=== PATIENT | male | born 1980 | race Caucasian/White ===

== ENCOUNTER 2024-05-13 16:34 | Outpatient (REF) | payer OTHER, SELFPAY ==
[2024-05-13 16:50] LABS: MANUAL DIFF FLAG NO
[2024-05-13 17:30] LABS: Basophils Absolute Auto 0.1 X10*3/uL (0.0-0.2); Basophils Percent Auto 0.5 % (0-2); Eosinophils Absolute Auto 0.1 X10*3/uL (0.0-0.4); Eosinophils Percent Auto 1.1 % (0-4); Hematocrit 46.4 % (42.0-52.0); Hemoglobin 15.9 g/dl (14.0-18.0); Imm Gran Abs Auto 0.04 X10*3/uL (0.00-0.03); Imm Gran Pct Auto 0.4 % (0.0-0.4); Lymphocytes Absolute Auto 3.6 X10*3/uL (1.2-4.9); Lymphocytes Percent Auto 31.4 % (20-40); Mean Corpuscular HGB Conc 34.3 g/dl (31.0-36.0); Mean Corpuscular Hemoglobin 29.7 pg (27.0-33.0); Mean Corpuscular Volume 86.7 fL (80.0-98.0); Mean Platelet Volume 12.4 fL (9.4-12.4); Monocytes Absolute Auto 0.7 X10*3/uL (0.1-1.2); Monocytes Percent Auto 5.7 % (2-11); Neutrophils Absolute Auto 6.9 x10*3/uL (2.0-8.3); Neutrophils Percent Auto 60.9 % (45-73); Platelet Count 199 X10*3/uL (160-400); Red Blood Count 5.35 X10*6/uL (4.60-5.80); Red Cell Distribution Width 12.5 % (11.0-16.0); White Blood Count 11.4 X10*3/uL (4.8-10.8)
[2024-05-13 17:40] LABS: Creatinine Urine 23.35 mg/dL; Microalbumin Urine < 5.0 mg/L
[2024-05-13 17:46] LABS: Alanine Aminotransferase 23 U/L (0-40); Albumin Level 4.4 g/dL (3.5-5.0); Alkaline Phosphatase 76 U/L (39-117); Anion Gap 12 (12-20); Aspartate Amino Transferase 16 U/L (5-37); Bilirubin Total 0.4 mg/dL (0.0-1.0); Blood Urea Nitrogen 10 mg/dL (9-16); Calcium 10.1 mg/dL (8.4-10.2); Carbon Dioxide 31 mmol/L (22-29); Chloride 100 mmol/L (96-108); Cholesterol 178 mg/dL (<200); Estimated Glomerular Filt Rate > 60; Glucose Random 193 mg/dL (60-115); HDL Cholesterol 50 mg/dL (>40); LDL Cholesterol Calculated 97 mg/dL (<100); Potassium 4.3 mmol/L (3.3-5.1); Sodium 139 mmol/L (135-145); Total Protein 7.3 g/dL (6.5-8.0); Triglycerides 157 mg/dL (<150)
[2024-05-13 17:52] LABS: Prostate Specific Antigen 0.43 ng/mL (<0.05-4.0)
[2024-05-13 17:53] LABS: TSH reflex Free T4 0.93 uIU/mL (0.32-4.0)
== END 2024-05-13 16:35 | disposition home or self-care (01) ==
LOC: HO.LAB 16:34
PROVIDERS: PCP Internal Medicine; Visit Provider Internal Medicine
DX: E11.65 Type 2 diabetes mellitus with hyperglycemia (principal); E78.00 Pure hypercholesterolemia, unspecified; F43.12 Post-traumatic stress disorder, chronic; F90.0 Attention-deficit hyperactivity disorder, predominantly inattentive type; I10 Essential (primary) hypertension
CPT/HCPCS: 36415; 80053; 80061; 82570; 84153; 84443; 85025

== ENCOUNTER 2024-07-24 07:55 | Outpatient (REF) | payer OTHER, SELFPAY ==
--- NOTE | 2024-07-24 | ECG_ITS ---
Test Reason : qtc prolongastion r/o Blood Pressure : / mmHG Vent. Rate : 084 BPM Atrial Rate : 084 BPM P-R Int : 162 ms QRS Dur : 126 ms QT Int : 406 ms P-R-T Axes : 020 -29 033 degrees QTc Int : 479 ms Normal sinus rhythm Left ventricular hypertrophy with QRS widening ( R in aVL , [place] product ) Abnormal ECG No previous ECGs available Referred By: Nishi Kebede Electronically Signed By:ANDRES VARGHESE
[2024-07-24 08:20] LABS: MANUAL DIFF FLAG NO
[2024-07-24 09:02] LABS: Basophils Absolute Auto 0.1 X10*3/uL (0.0-0.2); Basophils Percent Auto 0.6 % (0-2); Eosinophils Absolute Auto 0.1 X10*3/uL (0.0-0.4); Eosinophils Percent Auto 1.1 % (0-4); Hematocrit 46.8 % (42.0-52.0); Hemoglobin 15.3 g/dl (14.0-18.0); Imm Gran Abs Auto 0.02 X10*3/uL (0.00-0.03); Imm Gran Pct Auto 0.2 % (0.0-0.4); Lymphocytes Absolute Auto 2.7 X10*3/uL (1.2-4.9); Lymphocytes Percent Auto 29.6 % (20-40); Mean Corpuscular HGB Conc 32.7 g/dl (31.0-36.0); Mean Corpuscular Hemoglobin 29.4 pg (27.0-33.0); Mean Corpuscular Volume 89.8 fL (80.0-98.0); Mean Platelet Volume 12.2 fL (9.4-12.4); Monocytes Absolute Auto 0.5 X10*3/uL (0.1-1.2); Monocytes Percent Auto 5.4 % (2-11); Neutrophils Absolute Auto 5.7 x10*3/uL (2.0-8.3); Neutrophils Percent Auto 63.1 % (45-73); Platelet Count 188 X10*3/uL (160-400); Red Blood Count 5.21 X10*6/uL (4.60-5.80); Red Cell Distribution Width 13.4 % (11.0-16.0)
[2024-07-24 09:35] LABS: Estimated Average Glucose 189 mg/dL; Hemoglobin A1C 263.0496 umol/L; Hemoglobin A1c % 8.2 % (<6.0); Total Hemoglobin (HGBA1C) 3946.2368 umol/L
[2024-07-24 10:03] LABS: Erythrocyte Sedimentation Rate 2 MM/HR (0-15)
[2024-07-24 10:06] LABS: Appearance Urine Cloudy; Color Urine Yellow; Glucose Urine UA Negative (Negative); Leukocyte Esterase Urine Negative (Negative); Nitrite Urine Negative (Negative); Specific Gravity - Urine 1.015 (1.005-1.025); Urine Blood Negative (Negative); Urine Ketones Negative (Negative); Urine Protein Negative (Neg-Trace)
[2024-07-24 10:28] LABS: Syphilis Screen Nonreactive (Nonreactive)
[2024-07-24 10:29] LABS: Alanine Aminotransferase 24 U/L (0-40); Albumin Level 4.3 g/dL (3.5-5.0); Alkaline Phosphatase 71 U/L (39-117); Anion Gap 12 (12-20); Aspartate Amino Transferase 22 U/L (5-37); Bilirubin Total 0.7 mg/dL (0.0-1.0); Blood Urea Nitrogen 12 mg/dL (9-16); C Reactive Protein < 0.04 mg/dL (< or = 0.50); Calcium 9.4 mg/dL (8.4-10.2); Carbon Dioxide 28 mmol/L (22-29); Chloride 106 mmol/L (96-108); Cholesterol 125 mg/dL (<200); Estimated Glomerular Filt Rate > 60; Glucose Fasting 111 mg/dL (60-99); HDL Cholesterol 48 mg/dL (>40); Iron 91 mcg/dL (45-160); LDL Cholesterol Calculated 66 mg/dL (<100); Percent Iron Saturation 27 % (15-50); Phosphorus 3.8 mg/dL (2.7-4.5); Sodium 142 mmol/L (135-145); Total Iron Binding Capacity 336 mcg/dL (228-428); Total Protein 7.1 g/dL (6.5-8.0); Triglycerides 58 mg/dL (<150); Unsaturated Iron Binding 245 ug/dL; Uric Acid 4.3 mg/dL (3.4-7.0)
[2024-07-24 10:31] LABS: HBS Num1 0.14 mIU/mL (0-7.99); HBc Num1 0.09 S/CO (0.00-0.79); HBsAGNum1 0.34 S/CO (0.00-0.99); HIV AB/AG Nonreactive (Nonreactive); HIV Num 1 0.06 S/CO (0.00-0.99); Hepatitis B Core Antibody Nonreactive (Nonreactive); Hepatitis B Surface Antigen Negative (Negative); ~HepC Num1 0.23 S/CO (0.00-0.79); ~Hepatitis B Surface Antibody NONREACTIVE (Nonreactive); ~Hepatitis C Antibody Nonreactive (Nonreactive)
[2024-07-24 10:41] LABS: Ferritin 77 ng/mL (20-250); Free T4 (Free Thyroxine) 1.18 ng/dL (0.71-1.85); Vitamin D 25-OH Total 24.2 ng/mL (>30)
[2024-07-24 10:43] LABS: Folate 8.7 ng/mL (> or = 4.0); Prostate Specific Antigen 0.45 ng/mL (<0.05-4.0); Vitamin B12 372 pg/mL (200-900)
[2024-07-24 11:11] LABS: CT PCR NOT DETECTED (Not Detect.); NG PCR NOT DETECTED (Not Detect.)
[2024-07-24 12:53] LABS: Parathyroid Hormone Intact 62.5 pg/mL (8.7-77.1); Rheumatoid Factor < 13.0 IU/mL (<15.0)
[2024-07-27 20:07] LABS: Homocysteine 11.5 umol/L (<11.4)
[2024-07-28 23:59] LABS: Methylmalonic Acid 192 nmol/L (55-335)
[2024-07-30 13:58] LABS: Vitamin B6 9.9 ng/mL (2.1-21.7)
[2024-07-31 06:24] LABS: Vitamin B1 13 nmol/L (8-30)
== END 2024-07-24 07:56 | disposition home or self-care (01) ==
LOC: HO.LAB 07:55
PROVIDERS: PCP Internal Medicine; Visit Provider Psychiatry & Neurology Psychiatry
DX: F33.2 Major depressive disorder, recurrent severe without psychotic features (principal); N40.0 Benign prostatic hyperplasia without lower urinary tract symptoms; E11.9 Type 2 diabetes mellitus without complications
CPT/HCPCS: 80053; 80061; 81003; 82306; 82550; 82607; 82728; 82746; 83036; 83090; 83540; 83735; 83921; 83970; 84100; 84153; 84207; 84425; 84439; 84443; 84550; 85025; 85652; 86140; 86431; 86704; 86706; 86780; 86803; 87340; 87389; 87491; 87591; 93005

== ENCOUNTER → 2024-07-24 08:19 | Outpatient (BNV) | payer OTHER, SELFPAY | PROVIDERS: PCP Internal Medicine; Visit Provider Internal Medicine | DX: R94.31 Abnormal electrocardiogram [ECG] [EKG] (principal) | CPT/HCPCS: 93010 ==

== ENCOUNTER 2024-08-14 09:30 | Outpatient (RCR) | payer OTHER, SELFPAY ==
[2024-07-20 12:07] VITALS: BMI 36.5
[2024-07-20 12:10] VITALS: BP 119/68; PULSE 100; TEMP 36.9
--- NOTE | 2024-07-20 14:16 | PC.ADMIT ---
Patient is a 43 year old male who was referred to [facility] by Crisis d/t increased anxiety and depression. According to Integrative Assessment patient reportedly had a panic attack at work and has been on FMLA since June 2024 d/t mental health symptoms. Patient reports he had some medication changes including discontinuing Prozac and starting Vilazodone for over 4 weeks and has not noticed an improvement. 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 He reports that he has been working out of his home however finds little motivation to do things. Feels he has been more dependent on his who is also struggling with his own mental health. Patient reports he wakes every morning with nausea and feeling sick to his stomach. Patient is alert and oriented x4. Calm and cooperative. He presented with depressed mood and anxious affect. He denied SI currently. Patient reports having passive thoughts regarding SI. Patient stated, Not right now, If I I . He denied any plans or intention of killing himself. He was given a copy of his safety plan if needed. Patient reports history of smoking one marijuana joint daily. He has since cut down and has not used in a month. He denied using any other substances including alcohol. Medications reconciled with patient and patient's pharmacy. He reports he is taking medications as prescribed. He reports he tried Hydroxyzine, Atomoxetine, Quetiapine and Clonidine however he did not like the was it made him feel. Stated he is not on Ablilfy. Patient reports he has IDDM and checks blood sugars only in the morning. Usually 100's in the morning. 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 He talked to his PCP about getting the Dexcom sensor however he reports she was not receptive. Reports he starting seeing his new PCP for the past few months. Prior PCP left practice. Stated he wants a new PCP as he feels PCP is disorganized. Wants a PCP regarding diabetes tx. I gave him information about finding a new PCP along with someone who advertises that they specialize in diabetes. I advised him to do some research to see whether or not he wanted to see this provider.
--- NOTE | 2024-07-23 22:56 | P.HPPSP_ITS ---
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 Pure hypercholesterolemia Essential hypertension Diabetic neuropathy Abdominal hernia Insulin dependent type 2 diabetes mellitus Diagnostics Vital Signs (24Hr): BMI result Body Mass Index 36.5 Meds/Allergies Meds Home Medications ?Medication ?Instructions ?Recorded ?Confirmed ?Type atorvastatin 80 mg tablet 80 mg PO DAILY 07/20/24 07/20/24 History buspirone 10 mg tablet 10 mg PO BID 07/20/24 07/20/24 History insulin degludec 100 unit/mL (3 30 unit subcut BEDTIME 07/20/24 07/20/24 History mL) subcutaneous pen (Tresiba FlexTouch U-100 insulin) insulin lispro 100 unit/mL 10 unit subcut TID 07/20/24 07/20/24 History subcutaneous pen liraglutide 0.6 mg/0.1 mL (18 mg/3 1.2 mg subcut DAILY 07/20/24 07/20/24 History mL) subcutaneous pen injector (Victoza 2-Tim) pantoprazole 40 mg tablet,delayed 40 mg PO DAILY 07/20/24 07/20/24 History release pioglitazone 45 mg tablet 45 mg PO DAILY 07/20/24 07/20/24 History trazodone 100 mg tablet 200 mg PO BEDTIME 07/20/24 07/20/24 History trazodone 50 mg tablet 50 mg PO BEDTIME 07/20/24 07/20/24 History vilazodone 10 mg tablet 10 mg PO DAILY 07/20/24 07/20/24 History Allergies Allergies Allergy/AdvReac Type Severity Reaction Status Date / Time No Known Allergies Allergy Verified 07/20/24 12:06 Assessment & Plan Assessment & Plan (1) MDD (major depressive disorder), recurrent severe, without psychosis: Status: Acute Code(s): F33.2 - Major depressive disorder, recurrent severe without psychotic features (2) NORMA (generalized anxiety disorder): Status: Acute Code(s): F41.1 - Generalized anxiety disorder Plan Admit to [facility] VS reviewed: abrefile, BP ? bpm continue other regular medications? Routine lab work ordered as indicated EKG, routine for baseline QTc for medication considerations as indicated UDS as indicated MassPat reviewed Continue to monitor as per protocol Certification I certify that partial hospital treatment is medically necessary due to the symptoms and problems resulting from the patient's mental illness and the failure to treat the patient at the partial hospital level of care would likely result in the patient requiring inpatient psychiatric care which could not be prevented at a less intensive level of care. Time Spent With Patient Time: Total time managing care of this patient today ____ minutes.
--- NOTE | 2024-07-27 12:21 | PC.NURSE ---
Reviewed EKG results: NSR, L ventricular hypertrophy with QRS widening (R in VL, luis carlos product), QTC 479 and Lab results including F glucose 111, A1C 8.2. with Dr. Kebede. Adding Abilify and decreasing Rosuvastatin to 40 mg d/t c/o muscle pain with recent increase of Rosuvastatin to [address] Kebede.
--- NOTE | 2024-07-27 13:26 | HO.PHPPROGNO ---
Subjective Subjective Date of Service: 07/27/24 Reason For Visit: anxiety,depression Interim History: Continues with high anxiety, emotionality related to stressors at home, much to do with partner's mental health struggles and addiction to his prescription ADderall. Patient also has ADHD but does not get prescribed stimulants out of fear partner would use them. Mood is depressed, very low , anxiety that's so bad sleep has been awful . Has been falling asleep easily enough but waking middle of night with anxiety. Difficulty falling back asleep. Passive SI but mostly feeling overwhelmed by situation but denies wish to harm himself. He says he feels supported by peers at program. Medication Compliance: Yes Side effects from medications: No Attending Groups: Yes Review of Systems Acute medical concerns: No Mental Status Exam Mental Status Exam Narrative: Alert, oriented, in no acute distress. Calm, cooperative, engaged. Grooming fair. No psychomotor agitation or neurovegetative retardation. Eye contact maintained. Mood depressed, affect dysthymic, tearfulness. Speech normal. Thought process scattered, linear, coherent. Thought content related to stressors, executive dysfunction, feeling overwhelmed, some transient helplessness and hopelessness, passive SI, without intention, urge or plan to harm self. Denies any aggressive ideation. No paranoia or delusional content elicited. No evidence of psychosis. Insight and judgment fair but adequate. Diagnostics Vital Signs (24Hr): BMI result Body Mass Index 36.5 Assessment & Plan Assessment & Plan (1) MDD (major depressive disorder), recurrent severe, without psychosis: Status: Acute Code(s): F33.2 - Major depressive disorder, recurrent severe without psychotic features (2) NORMA (generalized anxiety disorder): Status: Acute Code(s): F41.1 - Generalized anxiety disorder Plan start Abilify 2 mg qd will plan to increase vilazodone to 15 mg if tolerated start clonazepam 0.5 mg qd prn acute anxiety (limited script #12) reviewed r/b/se of trtmt w BZD start vitamin D reduce rovastatin 40 mg qd x 1 week (?causing muscle pain) continue Buspar 10 mg BID continue other regular medications? Routine lab work ordered as indicated EKG, routine for baseline QTc for medication considerations as indicated UDS as indicated Continue to monitor Patient educated on: diagnosis, medication risk/benefits and substance abuse Informed Consent: understands Reason for contiued partial hosp. stay Substantial Risk for: inability to function, rapid decompensation and med/psych decompensation Certification I certify that partial hospital treatment is medically necessary due to the symptoms and problems resulting from the patient's mental illness and the failure to treat the patient at the partial hospital level of care would likely result in the patient requiring inpatient psychiatric care which could not be prevented at a less intensive level of care. Total time managing care of this patient today ___30_ minutes. Discharge Plan Discharge Attending provider: Nishi Kebede Medications: New aripiprazole 2 mg tablet 2 mg PO BEDTIME Qty: 14 0RF clonazepam 0.5 mg tablet 0.5 mg PO DAILY PRN (Reason: anxiety, sleep) Qty: 12 0RF ergocalciferol (vitamin D2) [Vitamin D2] 1,250 mcg (50,000 unit) capsule 1,250 mcg PO QWEEK Qty: 14 0RF atorvastatin 40 mg tablet 40 mg PO DAILY Qty: 20 0RF Continued buspirone 10 mg tablet 10 mg PO BID Rx Instructions: Last filled 07/13/24 insulin lispro 100 unit/mL insulin pen 10 unit subcut TID Rx Instructions: Last filled 05/01/24 vilazodone 10 mg Tablet 10 mg PO DAILY Rx Instructions: must administer with a meal/food. Last filled 07/13/24 pantoprazole 40 mg Tablet,Delayed Release (Dr/Ec) 40 mg PO DAILY Rx Instructions: Last filled 07/10/24 liraglutide [Victoza 2-Tim] 0.6 mg/0.1 mL (18 mg/3 mL) Pen Injector 1.2 mg SUBCUT DAILY Rx Instructions: Last filled 06/12/24 pioglitazone 45 mg Tablet 45 mg PO DAILY Rx Instructions: Last filled 07/19/24 insulin degludec [Tresiba FlexTouch U-100] 100 unit/mL (3 mL) insulin pen 30 unit subcut BEDTIME Rx Instructions: Last filled 06/25/24. trazodone 50 mg Tablet 50 mg PO BEDTIME Rx Instructions: Last filled 07/13/24 trazodone 100 mg Tablet 200 mg PO BEDTIME Rx Instructions: Last filled 07/13/24 Held atorvastatin 80 mg Tablet 80 mg PO DAILY Hold Instructions: Resume on 08/04/24. ?causing muscle pain b/l thighs/legs Rx Instructions: Last filled 07/08/24. Stand Alone Forms: Patient Portal Discharge page Print Language: Greenlandic
--- NOTE | 2024-07-30 15:15 | HO.PHP ---
Pt's case has been opened and reviewed in treatment team.
--- NOTE | 2024-08-04 01:04 | P.PNPSP_ITS ---
Subjective Subjective Date of Service: 08/03/24 Reason For Visit: anxiety,depression Interim History: Presents as very depressed, tearful, anxious, overwhelmed. He has been overtaking his Adderall...I feel verbally assaulted. He is terrible. I said I need to step away . Repots mood is low, feeling demoralized, resigned, transient hopelessness, denies any intention of harming self. Sleep is awful . Anxiety is so bad . Falls asleep okay but then wakes and is unable to fall back asleep. Passive SI, denies intention, urge or plan. Denies AI ro HI. No AVH or paranoia. Medication Compliance: Yes Side effects from medications: No Attending Groups: Yes Review of Systems Acute medical concerns: No Mental Status Exam Mental Status Exam Narrative: Alert, oriented, in no acute distress. Calm, cooperative, engaged. Grooming fair. No psychomotor agitation or neurovegetative retardation. Eye contact maintained. Mood depressed, affect dysthymic, tearfulness. Speech normal. Thought process scattered, linear, coherent. Thought content related to stressors, executive dysfunction, feeling overwhelmed, some transient helplessness and hopelessness, passive SI, without intention, urge or plan to harm self. Denies any aggressive ideation. No paranoia or delusional content elicited. No evidence of psychosis. Insight and judgment fair but adequate. Diagnostics Vital Signs (24Hr): BMI result Body Mass Index 36.5 Assessment & Plan Assessment & Plan (1) MDD (major depressive disorder), recurrent severe, without psychosis: Status: Acute Code(s): F33.2 - Major depressive disorder, recurrent severe without psychotic features (2) NORMA (generalized anxiety disorder): Status: Acute Code(s): F41.1 - Generalized anxiety disorder Plan increase Abilify to 3 mg qd (incr by 1 mg q 1-3 days as tolerated until at 5-7 mg (if does not tolerate will consider switch to Latuda. Lamictal would take too long will plan to increase vilazodone to 15 mg if tolerated take clonazepam 0.5- 1 mg qd prn acute anxiety, sleep (limited script #12) reviewed r/b/se of trtmt w BZD start vitamin D reduce rovastatin 40 mg qd x 1 week (?causing muscle pain) continue Buspar 10 mg BID continue other regular medications? Routine lab work ordered as indicated EKG, routine for baseline QTc for medication considerations as indicated UDS as indicated Continue to monitor Patient educated on: diagnosis, medication risk/benefits and substance abuse Informed Consent: understands Reason for contiued partial hosp. stay Substantial Risk for: inability to function, rapid decompensation and med/psych decompensation Certification I certify that partial hospital treatment is medically necessary due to the symptoms and problems resulting from the patient's mental illness and the failure to treat the patient at the partial hospital level of care would likely result in the patient requiring inpatient psychiatric care which could not be prevented at a less intensive level of care. Total time managing care of this patient today __30__ minutes. Discharge Plan Discharge Attending provider: Nishi Kebede Medications: New aripiprazole 2 mg tablet 2 mg PO BEDTIME Qty: 14 0RF clonazepam 0.5 mg tablet 0.5 mg PO DAILY PRN (Reason: anxiety, sleep) Qty: 12 0RF ergocalciferol (vitamin D2) [Vitamin D2] 1,250 mcg (50,000 unit) capsule 1,250 mcg PO QWEEK Qty: 14 0RF atorvastatin 40 mg tablet 40 mg PO DAILY Qty: 20 0RF mecobalamin (vitamin B12) 1,000 mcg tablet,chewable 1,000 mcg PO DAILY Qty: 30 0RF Continued buspirone 10 mg tablet 10 mg PO BID Rx Instructions: Last filled 07/13/24 insulin lispro 100 unit/mL insulin pen 10 unit subcut TID Rx Instructions: Last filled 05/01/24 vilazodone 10 mg Tablet 10 mg PO DAILY Rx Instructions: must administer with a meal/food. Last filled 07/13/24 pantoprazole 40 mg Tablet,Delayed Release (Dr/Ec) 40 mg PO DAILY Rx Instructions: Last filled 07/10/24 liraglutide [Victoza 2-Tim] 0.6 mg/0.1 mL (18 mg/3 mL) Pen Injector 1.2 mg SUBCUT DAILY Rx Instructions: Last filled 06/12/24 pioglitazone 45 mg Tablet 45 mg PO DAILY Rx Instructions: Last filled 07/19/24 insulin degludec [Tresiba FlexTouch U-100] 100 unit/mL (3 mL) insulin pen 30 unit subcut BEDTIME Rx Instructions: Last filled 06/25/24. trazodone 50 mg Tablet 50 mg PO BEDTIME Rx Instructions: Last filled 07/13/24 trazodone 100 mg Tablet 200 mg PO BEDTIME Rx Instructions: Last filled 07/13/24 Held atorvastatin 80 mg Tablet 80 mg PO DAILY Hold Instructions: Resume on 08/04/24. ?causing muscle pain b/l thighs/legs Rx Instructions: Last filled 07/08/24. Stand Alone Forms: Patient Portal Discharge page Print Language: Yoruba
[2024-08-07 09:28] VITALS: BP 130/66; PULSE 100
--- NOTE | 2024-08-07 09:29 | PC.NURSE ---
Patient reports that he was feeling dizzy and lightheaded and felt he was tilting to one side when he was walking from the parking lot to the program. He stated he felt a little better at present. No tilting to one side seen by this investigative writer. He appeared to be walking wnl. No weakness or numbness in the face arm or leg. No nausea or vomiting. No headache. 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 Patient is alert and oriented x4. Denied pain. VS BP 130/66 P. 100. Patient stated he is feeling anxious. Reports a history of lightheadedness with anxiety. Dr. Kebede is aware.
--- NOTE | 2024-08-07 23:10 | P.PNPSP_ITS ---
Subjective Subjective Date of Service: 08/07/24 Reason For Visit: anxiety,depression Interim History: Stomach aches have resolved since lowering trazodone. Currently at 100 mg, from 250 mg. Although sleep is now worse, having trouble falling asleep. Clonazepam did not help much with sleep at 1 mg. He wakes feeling anxious, anxiety is more in his body than anxious thoughts. Abilify currently at 3 mg, denies any adverse effects, mood still depressed, but it does seem I'm calmer . Will continue to titrate Abilify to 4 mg tonight, and then to 5 mg as tolerated. For now will hold clonazepam (at night) and start prazosin and continue trazodone 100 mg. May consider adding 2 mg ABilify in AM if needed. WIll continue to utilize non-BZD options to treat generalized, day to day anxiety. CLonazepam eventually for situational anxiety strictly as prn (no more than a couple times week/month(, but not as regular trtmt regime. Patient understand and agrees with plan. Episode of dizziness this AM, patient attribtued it to having an extra cigarette this morning, says he is sensitive to stimulant effects of nicotine Medication Compliance: Yes Side effects from medications: No Attending Groups: Yes Review of Systems Acute medical concerns: No Mental Status Exam Mental Status Exam Narrative: Alert, oriented, in no acute distress. Grooming fair. Mood anxious, depressed, affect depressed, no notable tearfulness or lability. Speech normal. Thought process scattered, linear, coherent. Thought content related to stressors, some transient hopelessness, denies SI, intention, urge or plan to harm self. Denies any aggressive ideation. No paranoia or delusional content elicited. No evidence of psychosis. Insight and judgment fair but adequate. Diagnostics Vital Signs (24Hr): Vital Signs - 24 hr 08/07/24 09:28 Pulse Rate 100 Blood Pressure 130/66 BMI result Body Mass Index 36.5 Assessment & Plan Assessment & Plan (1) MDD (major depressive disorder), recurrent severe, without psychosis: Status: Acute Code(s): F33.2 - Major depressive disorder, recurrent severe without psychotic features (2) NORMA (generalized anxiety disorder): Status: Acute Code(s): F41.1 - Generalized anxiety disorder Plan continue to titrate Abilify to 5 mg qd continue vilazodone 10 mg continue Buspar 10 mg BID hold clonazepam for now start prazosin 1 mg qhs will plan to increase vilazodone to 15 mg next week vs ABilify 2 mg added to AM (to better target depression vs irritability, respectively) vs titrating Buspar for anxiety continue vitamin D2 02614 IU weekly continue rovastatin 40 mg qd since better tolerated than 80 mg and agrees to follow up with PCP continue other regular medications? Routine lab work ordered as indicated EKG, routine for baseline QTc for medication considerations as indicated UDS as indicated Continue to monitor Patient educated on: diagnosis, medication risk/benefits and substance abuse Informed Consent: understands Certification I certify that partial hospital treatment is medically necessary due to the symptoms and problems resulting from the patient's mental illness and the failure to treat the patient at the partial hospital level of care would likely result in the patient requiring inpatient psychiatric care which could not be prevented at a less intensive level of care. Total time managing care of this patient today _30___ minutes. Discharge Plan Discharge Attending provider: Nishi Kebede Medications: New aripiprazole 2 mg tablet 2 mg PO BEDTIME Qty: 14 0RF clonazepam 0.5 mg tablet 0.5 mg PO DAILY PRN (Reason: anxiety, sleep) Qty: 12 0RF ergocalciferol (vitamin D2) [Vitamin D2] 1,250 mcg (50,000 unit) capsule 1,250 mcg PO QWEEK Qty: 14 0RF atorvastatin 40 mg tablet 40 mg PO DAILY Qty: 20 0RF mecobalamin (vitamin B12) 1,000 mcg tablet,chewable 1,000 mcg PO DAILY Qty: 30 0RF aripiprazole 5 mg tablet 5 mg PO BEDTIME Qty: 30 0RF prazosin 1 mg capsule 1 mg PO BEDTIME Qty: 20 0RF Continued buspirone 10 mg tablet 10 mg PO BID Rx Instructions: Last filled 07/13/24 insulin lispro 100 unit/mL insulin pen 10 unit subcut TID Rx Instructions: Last filled 05/01/24 vilazodone 10 mg Tablet 10 mg PO DAILY Rx Instructions: must administer with a meal/food. Last filled 07/13/24 pantoprazole 40 mg Tablet,Delayed Release (Dr/Ec) 40 mg PO DAILY Rx Instructions: Last filled 07/10/24 liraglutide [Victoza 2-Tim] 0.6 mg/0.1 mL (18 mg/3 mL) Pen Injector 1.2 mg SUBCUT DAILY Rx Instructions: Last filled 06/12/24 pioglitazone 45 mg Tablet 45 mg PO DAILY Rx Instructions: Last filled 07/19/24 insulin degludec [Tresiba FlexTouch U-100] 100 unit/mL (3 mL) insulin pen 30 unit subcut BEDTIME Rx Instructions: Last filled 06/25/24. Changed trazodone 100 mg Tablet 100 mg PO BEDTIME Qty: 30 0RF Rx Instructions: Last filled 07/13/24 Held atorvastatin 80 mg Tablet 80 mg PO DAILY Hold Instructions: Resume on 08/04/24. ?causing muscle pain b/l thighs/legs Rx Instructions: Last filled 07/08/24. Discontinued trazodone 50 mg Tablet 50 mg PO BEDTIME Rx Instructions: Last filled 07/13/24 Stand Alone Forms: Patient Portal Discharge page Print Language: Ugandan
--- NOTE | 2024-08-13 23:32 | P.PNPSP_ITS ---
Subjective Subjective Reason For Visit: anxiety,depression Mental Status Exam Mental Status Exam Narrative: Alert, oriented, in no acute distress. Mood stable, affect anxious, less depressed, no notable tearfulness or lability. Speech normal. Thought process li near, coherent. Thought content related to stressors, denies SI, intention, urge or plan to harm self. Denies any aggressive ideation. No paranoia or delusional content elicited. No evidence of psychosis. Insight and judgment fair but adequate. Diagnostics Vital Signs (24Hr): BMI result Body Mass Index 36.5 Assessment & Plan Assessment & Plan (1) MDD (major depressive disorder), recurrent severe, without psychosis: Status: Acute Code(s): F33.2 - Major depressive disorder, recurrent severe without psychotic features (2) NORMA (generalized anxiety disorder): Status: Acute Code(s): F41.1 - Generalized anxiety disorder Plan continue Abilify 5 mg qhs offer Abilify 2 mg qam prn (for more stressful periods) if too sedating could split 1/6 or take 7 mg qhs continue vilazodone 10 mg continue Buspar 10 mg BID continue prazosin 2-3 mg qhs continue trazodone 100 mg qhs PRN sleep may alternate with zolpidem 2.5-5 mg qhs PRN sleep continue vitamin D2 69820 IU weekly #14 continue rovastatin 40 mg qd since better tolerated than 80 mg and agrees to follow up with PCP continue other regular medications discontinued: clonazepam (ineffective for anxiety or sleep @1mg) ? Routine lab work reviewed with patient, vitamin D deficiency, weely supplementation initiated Continue to monitor Plan for discharge tomorrow Patient educated on: diagnosis and medication risk/benefits Informed Consent: understands Reason for contiued partial hosp. stay Substantial Risk for: med/psych decompensation Certification I certify that partial hospital treatment is medically necessary due to the symptoms and problems resulting from the patient's mental illness and the failure to treat the patient at the partial hospital level of care would likely result in the patient requiring inpatient psychiatric care which could not be prevented at a less intensive level of care. Total time managing care of this patient today _30___ minutes. Discharge Plan Discharge Attending provider: Nishi Kebede Medications: New ergocalciferol (vitamin D2) [Vitamin D2] 1,250 mcg (50,000 unit) capsule 1,250 mcg PO QWEEK Qty: 14 0RF atorvastatin 40 mg tablet 40 mg PO DAILY Qty: 20 0RF mecobalamin (vitamin B12) 1,000 mcg tablet,chewable 1,000 mcg PO DAILY Qty: 30 0RF aripiprazole 5 mg tablet 5 mg PO BEDTIME Qty: 30 0RF prazosin 1 mg capsule 1 mg PO BEDTIME Qty: 20 0RF zolpidem 5 mg tablet 5 mg PO BEDTIME PRN (Reason: sleep) Qty: 10 0RF Continued insulin lispro 100 unit/mL insulin pen 10 unit subcut TID Rx Instructions: Last filled 05/01/24 pantoprazole 40 mg Tablet,Delayed Release (Dr/Ec) 40 mg PO DAILY Rx Instructions: Last filled 07/10/24 liraglutide [Victoza 2-Tim] 0.6 mg/0.1 mL (18 mg/3 mL) Pen Injector 1.2 mg SUBCUT DAILY Rx Instructions: Last filled 06/12/24 pioglitazone 45 mg Tablet 45 mg PO DAILY Rx Instructions: Last filled 07/19/24 insulin degludec [Tresiba FlexTouch U-100] 100 unit/mL (3 mL) insulin pen 30 unit subcut BEDTIME Rx Instructions: Last filled 06/25/24. buspirone 10 mg tablet 10 mg PO BID Qty: 60 0RF Rx Instructions: Last filled 07/13/24 vilazodone 10 mg Tablet 10 mg PO DAILY Qty: 30 0RF Rx Instructions: must administer with a meal/food. Changed trazodone 100 mg Tablet 100 mg PO BEDTIME Qty: 30 0RF Rx Instructions: Last filled 07/13/24 aripiprazole 2 mg tablet 2 mg PO DAILY Qty: 14 0RF Held atorvastatin 80 mg Tablet 80 mg PO DAILY Hold Instructions: Resume on 08/04/24. ?causing muscle pain b/l thighs/legs Rx Instructions: Last filled 07/08/24. Discontinued trazodone 50 mg Tablet 50 mg PO BEDTIME Rx Instructions: Last filled 07/13/24 Stand Alone Forms: Patient Portal Discharge page Patient Education: Depression (DC), Post Traumatic Stress Disorder (DC), Generalized Anxiety Disorder (ED), Insomnia (DC) Print Language: Burmese
--- NOTE | 2024-08-14 14:04 | HO.PHP ---
When reviewing discharge clinical on 08/14/24 (30th unit), it appears [facility] insurance coverage was 30 units, last covered day 08/11/24. Ed from [facility] stated that a claim would need to be processed and most likely cover payment due to only utilizing 30 units. Tiara Hernandez from [facility] [place] billing was contacted stating that claims are issued on the of the month, and this likely would not be seen or processed until September. She entered a note within the chart of aforementioned information. It appears to be resolved at this time.
--- NOTE | 2024-08-19 17:00 | P.EN_ITS ---
Event Note Date of Service: 08/19/24 Event Note: Patient reached out to [facility] for refill. Prazosin at 3 mg at night. Finished last dose. Rx efaxed for 1 mg caps and 2 mg caps. Will try returning call to him by end of week. Time Spent With Patient Time: Total time managing care of this patient today __5__ minutes.
== END 2024-08-14 23:59 | disposition home or self-care (01) ==
LOC: HO.PHPA 09:30
PROVIDERS: Visit Provider Psychiatry & Neurology Psychiatry
DX: F33.2 Major depressive disorder, recurrent severe without psychotic features (principal); F41.1 Generalized anxiety disorder; Z79.899 Other long term (current) drug therapy
CPT/HCPCS: 90791; 90853

== ENCOUNTER 2024-10-27 17:30 | Emergency (ER) | payer OTHER, SELFPAY ==
[2024-10-27 17:37] VITALS: BP 138/76; PULSE 103; RESP 18; TEMP 36.8; O2SAT 99; BMI 38.9
--- NOTE | 2024-10-27 17:40 | ED_ITS ---
HPI - General Adult General Chief complaint: Recheck/Abnormal Lab/Rx Stated complaint: High blood sugar Time Seen by Provider: 10/27/24 19:38 Source: patient Mode of arrival: ambulatory Limitations: no limitations History of Present Illness ED Provider: abigail galdamez np HPI narrative: Patient is a 44-year-old male with past medical history of MDD, NORMA, hyperlipidemia, diabetes on Tresiba long-acting insulin and Liraglutide who presents to the emergency department for evaluation of hyperglycemia over the past 3 days with associated urinary frequency and fatigue. He endorses compliance with his long-acting insulin and Victoza. No recent dosage changes. Saw his primary care doctor approximately 1 week ago, believes his A1c was around the range of 7.4. He denies any recent URI symptoms. He denies dysuria. Denies associated headache, dizziness, lightheadedness, vision changes, chest pain, shortness of breath, nausea, vomiting, abdominal pain, back pain, numbness or tingling of his extremities. Related Data Home Medications ?Medication ?Instructions ?Recorded ?Confirmed atorvastatin 80 mg tablet 80 mg PO DAILY 07/20/24 07/20/24 insulin degludec 100 unit/mL (3 30 unit subcut BEDTIME 07/20/24 07/20/24 mL) subcutaneous pen (Tresiba FlexTouch U-100 insulin) insulin lispro 100 unit/mL 10 unit subcut TID 07/20/24 07/20/24 subcutaneous pen liraglutide 0.6 mg/0.1 mL (18 mg/3 1.2 mg subcut DAILY 07/20/24 07/20/24 mL) subcutaneous pen injector (Victoza 2-Tim) pantoprazole 40 mg tablet,delayed 40 mg PO DAILY 07/20/24 07/20/24 release pioglitazone 45 mg tablet 45 mg PO DAILY 07/20/24 07/20/24 Previous Rx's ?Medication ?Instructions ?Recorded atorvastatin 40 mg tablet 40 mg PO DAILY #20 tabs 07/28/24 ergocalciferol (vitamin D2) 1,250 1,250 mcg PO QWEEK #14 caps 07/28/24 mcg (50,000 unit) capsule (Vitamin D2) mecobalamin (vitamin B12) 1,000 1,000 mcg PO DAILY #30 tabs 08/03/24 mcg chewable tablet aripiprazole 5 mg tablet 5 mg PO BEDTIME #30 tabs 08/07/24 prazosin 1 mg capsule 1 mg PO BEDTIME as directed #20 08/07/24 caps trazodone 100 mg tablet 100 mg PO BEDTIME #30 tabs 08/07/24 buspirone 10 mg tablet 10 mg PO BID #60 tabs 08/11/24 vilazodone 10 mg tablet 10 mg PO DAILY #30 tabs 08/11/24 aripiprazole 2 mg tablet 2 mg PO DAILY as directed #14 tabs 08/13/24 zolpidem 5 mg tablet 5 mg PO BEDTIME PRN sleep #10 tabs 08/13/24 prazosin 1 mg capsule 1 mg PO BEDTIME as directed #30 08/19/24 caps prazosin 2 mg capsule 2 mg PO BEDTIME as directed #30 08/19/24 caps Allergies Allergy/AdvReac Type Severity Reaction Status Date / Time No Known Allergies Allergy Verified 10/27/24 17:39 Review of Systems 2 Review of Systems: Yes all other systems are reviewed and are negative PMFSH Past Medical History Attestation statement: The following information was validated with the patient. Source: old records reviewed Medical History [facility] (current) use of insulin Pure hypercholesterolemia Essential hypertension Diabetic neuropathy Abdominal hernia Insulin dependent type 2 diabetes mellitus Social History Social History Household Members: Spouse and Family Comment: Tentative DC 08/14/24 Tobacco use type: Cigarette Cigarettes Per Day: 10 Advance Directives: No Advance Directives Information Provided: Yes Physical Exam ED Vital Signs: Vital Signs - 24 hr 10/27/24 17:37 10/27/24 19:42 Temperature 98.3 F 98.1 F Pulse Rate 103 H 91 Respiratory Rate 18 18 Blood Pressure 138/76 105/64 Pulse Oximetry 99 97 Oxygen Delivery Method Room Air Room Air BMI result Body Mass Index 38.9 Appearance: Alert.?Oriented to person, place and time. No acute distress.?Normal affect. Eyes: Pupils equal, round and reactive to light.? ENT: Pharynx normal.?? Neck: Normal inspection.? Neck supple.?? CVS: Heart sounds normal. Normal heart rate and rhythm.? Pulses normal.?? Respiratory: No respiratory distress.? Lung sounds clear to auscultation bilaterally?? Abdomen: Soft and non-tender. Normoactive bowel sounds. Skin: Skin warm and dry.? Normal skin color.? ? Extremities: No lower extremity edema.? No calf ttp? Neuro: Moves all extremities spontaneously. Sensation intact bilaterally. Ambulates with normal steady gait. Course Course Course Narrative: This is a rapid medical exam performed by Josy Hay PA-C. The patient is a 44-year-old male with a history of anxiety, depression and an diabetes, who presents with a hyperglycemia x3 days. Increased urinary frequency and fatigue. Denies cough or cold symptoms, fevers. We will be screening basic labs a beta hydroxy venous blood gas. And a urinalysis. The patient was stable and can return to the waiting room pending his full medical assessment. Medications Administered Discontinued Medications Generic Name Dose Route Start Last Admin Trade Name Freq PRN Reason Stop Dose Admin Insulin Human Lispro 5 unit 10/27/24 20:09 10/27/24 20:32 Insulin Lispro 100 Unit/Ml 3 Ml Vial SUBCUT 10/27/24 20:10 5 unit ONCE ONE Administration Medical Decision Making Medical Decision Making MDM Narrative: Patient is a 44-year-old male with past medical history of diabetes, hypercholesterolemia, hypertension who presents emergency department for evaluation of urinary frequency, fatigue over the past 3 days with sensation of elevated blood glucose readings. He has not been checking his blood glucose levels at home, as he does not like the sensation of persistently pricking his fingertips. He arrives appearing nontoxic, afebrile. No respiratory distress. Benign abdominal examination. Serum labs were obtained prior to my assumption of care revealing a mild leukocytosis of 11,400 without left shift, no anemia or thrombocytopenia. He has a non-anion gap hyperglycemia, not consistent with DKA, random glucose of 333, normal beta hydroxybutyrate. Unremarkable electrolytes, no PHILIPPE, no abnormality of the LFTs. Urinalysis with glucosuria otherwise without signs of infection. Obtaining viral serologies to exclude viral illness. Reviewed with patient, considering keeping log of blood glucose levels over the next week fasting in the morning and at least once daily 2 hours after a meal, and if he continues to have persistently elevated blood glucose readings he may review this with his primary care doctor and they may discuss any changes to his regimen as they feel necessary. Patient received insulin lispro 5 units subcutaneous in the emergency department, with blood glucose level trending. Viral serologies were negative. We additionally discussed strict return precautions, worrisome signs and symptoms that would warrant re- evaluation in the emergency department all questions were answered. Stable for discharge Differential Diagnosis Differential Diagnoses: The differential diagnosis associated with the presentation includes (Uncontrolled diabetes, non-anion gap hyperglycemia, DKA, HHS.) Admission/Observation Consideration of admission/observation: Escalation of care including admission/observation considered Lab Data MDM Lab Attestation statement: I reviewed the patient's lab results. (See narrative above) 10/27/24 18:09 10/27/24 18:09 Labs: Lab Results 10/27/24 10/27/24 10/27/24 Range/Units 18:05 18:09 18:14 WBC 11.4 H (4.8-10.8) X10*3/uL RBC 5.28 (4.60-5.80) X10*6/uL Hgb 15.9 (14.0-18.0) g/dl Hct 45.4 (42.0-52.0) % MCV 86.0 (80.0-98.0) fL MCH 30.1 (27.0-33.0) pg MCHC 35.0 (31.0-36.0) g/dl RDW 12.3 (11.0-16.0) % Plt Count 202 (160-400) X10*3/uL MPV 12.2 (9.4-12.4) fL Immature Gran % (Auto) 0.3 (0.0-0.4) % Neut % (Auto) 57.0 (45-73) % Lymph % (Auto) 34.4 (20-40) % [place] % (Auto) 5.7 (2-11) % Eos % (Auto) 2.1 (0-4) % Baso % (Auto) 0.5 (0-2) % Lymph # (Auto) 3.9 (1.2-4.9) X10*3/uL [place] # (Auto) 0.7 (0.1-1.2) X10*3/uL Eos # (Auto) 0.2 (0.0-0.4) X10*3/uL Baso # (Auto) 0.1 (0.0-0.2) X10*3/uL Abs Immat Gran (auto) 0.03 (0.00-0.03) X10*3/uL Absolute Neuts (auto) 6.5 (2.0-8.3) x10*3/uL Absolute Nucleated RBC 0.000 (0.0-0.012) X10*3/uL Nucleated RBC % (auto) 0.0 (0.0-0.2) /100WBC VBG pH Cancelled 7.42 VBG pCO2 Cancelled 43 VBG pO2 Cancelled 50 VBG HCO3 Cancelled 28 H VBG O2 Saturation Cancelled 85.0 VBG Base Excess Cancelled 3.5 Sodium 136 (135-145) mmol/L Potassium 4.1 (3.3-5.1) mmol/L Chloride 106 (96-108) mmol/L Carbon Dioxide 24 (22-29) mmol/L Anion Gap 10 L (12-20) BUN 13 (9-16) mg/dL Creatinine 0.86 (0.5-1.4) mg/dL Estim Creat Clear Calc 149.6 Estimated GFR > 60 Random Glucose 333 H (60-115) mg/dL Calcium 9.6 (8.4-10.2) mg/dL Magnesium 2.0 (1.6-2.6) mg/dL Total Bilirubin 0.4 (0.0-1.0) mg/dL AST 23 (5-37) U/L ALT 39 (0-40) U/L Alkaline Phosphatase 95 (39-117) U/L Total Protein 7.4 (6.5-8.0) g/dL Albumin 4.4 (3.5-5.0) g/dL Lipase 33 (8-78) U/L Beta-Hydroxybutyrate 0.08 (0.02-0.27) mmol/L Urine Color Yellow Urine Appearance Clear Urine pH 5.5 (5.0-9.0) Ur Specific [place] 1.025 (1.005-1.025) Urine Protein Negative (Neg-Trace) mg/dL Urine Glucose (UA) >=1000 H (Negative) mg/dL Urine Ketones Trace (Negative) mg/dL Urine Blood Negative (Negative) Urine Nitrite Negative (Negative) Ur Leukocyte Esterase Negative (Negative) Urine RBC 0-2 (0-2) /HPF Urine WBC 0-5 (0-5) /HPF Ur Squamous Epith Cells 0-2 (0-2) /HPF Urine Bacteria None Seen (None Seen) Hyaline Casts 0-2 (0-2) /LPF Influenza Type A (PCR) (Negative) Influenza Type B (PCR) (Negative) RSV RNA Qual (PCR) (Negative) SARS-CoV-2 RNA (RT-PCR) (Negative) 10/27/24 Range/Units 20:30 WBC (4.8-10.8) X10*3/uL RBC (4.60-5.80) X10*6/uL Hgb (14.0-18.0) g/dl Hct (42.0-52.0) % MCV (80.0-98.0) fL MCH (27.0-33.0) pg MCHC (31.0-36.0) g/dl RDW (11.0-16.0) % Plt Count (160-400) X10*3/uL MPV (9.4-12.4) fL Immature Gran % (Auto) (0.0-0.4) % Neut % (Auto) (45-73) % Lymph % (Auto) (20-40) % [place] % (Auto) (2-11) % Eos % (Auto) (0-4) % Baso % (Auto) (0-2) % Lymph # (Auto) (1.2-4.9) X10*3/uL [place] # (Auto) (0.1-1.2) X10*3/uL Eos # (Auto) (0.0-0.4) X10*3/uL Baso # (Auto) (0.0-0.2) X10*3/uL Abs Immat Gran (auto) (0.00-0.03) X10*3/uL Absolute Neuts (auto) (2.0-8.3) x10*3/uL Absolute Nucleated RBC (0.0-0.012) X10*3/uL Nucleated RBC % (auto) (0.0-0.2) /100WBC VBG pH VBG pCO2 VBG pO2 VBG HCO3 VBG O2 Saturation VBG Base Excess Sodium (135-145) mmol/L Potassium (3.3-5.1) mmol/L Chloride (96-108) mmol/L Carbon Dioxide (22-29) mmol/L Anion Gap (12-20) BUN (9-16) mg/dL Creatinine (0.5-1.4) mg/dL Estim Creat Clear Calc Estimated GFR Random Glucose (60-115) mg/dL Calcium (8.4-10.2) mg/dL Magnesium (1.6-2.6) mg/dL Total Bilirubin (0.0-1.0) mg/dL AST (5-37) U/L ALT (0-40) U/L Alkaline Phosphatase (39-117) U/L Total Protein (6.5-8.0) g/dL Albumin (3.5-5.0) g/dL Lipase (8-78) U/L Beta-Hydroxybutyrate (0.02-0.27) mmol/L Urine Color Urine Appearance Urine pH (5.0-9.0) Ur Specific [place] (1.005-1.025) Urine Protein (Neg-Trace) mg/dL Urine Glucose (UA) (Negative) mg/dL Urine Ketones (Negative) mg/dL Urine Blood (Negative) Urine Nitrite (Negative) Ur Leukocyte Esterase (Negative) Urine RBC (0-2) /HPF Urine WBC (0-5) /HPF Ur Squamous Epith Cells (0-2) /HPF Urine Bacteria (None Seen) Hyaline Casts (0-2) /LPF Influenza Type A (PCR) NEGATIVE (Negative) Influenza Type B (PCR) NEGATIVE (Negative) RSV RNA Qual (PCR) NEGATIVE (Negative) SARS-CoV-2 RNA (RT-PCR) NEGATIVE (Negative) Independent Historian Clinical information obtained from an independent historian. History obtained from or confirmed by: Spouse External Record Review External record reviewed: Outpatient record Prescription Management I considered prescription management with: Other (See narrative above) Chronic Conditions Patient?s care impacted by: Other (See narrative above) Discharge Plan Discharge Clinical Impression: Diabetes mellitus with hyperglycemia Patient Disposition: Home, Self-Care Instructions: Diabetic Hyperglycemia (ED) Additional Instructions: As discussed, please keep a log of your blood glucose levels over the next week daily in the morning after overnight fasting and at least once daily 2 hours after a meal, reviewed these findings with your primary care doctor and discuss whether you need any changes to your diabetic regimen. You may return at any time to emergency department any new or worsening symptoms or concerns. Prescriptions: No Action insulin lispro 100 unit/mL insulin pen 10 unit subcut TID Rx Instructions: Last filled 05/01/24 atorvastatin 80 mg Tablet 80 mg PO DAILY Rx Instructions: Last filled 07/08/24. pantoprazole 40 mg Tablet,Delayed Release (Dr/Ec) 40 mg PO DAILY Rx Instructions: Last filled 07/10/24 liraglutide [Victoza 2-Tim] 0.6 mg/0.1 mL (18 mg/3 mL) Pen Injector 1.2 mg SUBCUT DAILY Rx Instructions: Last filled 06/12/24 pioglitazone 45 mg Tablet 45 mg PO DAILY Rx Instructions: Last filled 07/19/24 insulin degludec [Tresiba FlexTouch U-100] 100 unit/mL (3 mL) insulin pen 30 unit subcut BEDTIME Rx Instructions: Last filled 06/25/24. ergocalciferol (vitamin D2) [Vitamin D2] 1,250 mcg (50,000 unit) capsule 1,250 mcg PO QWEEK Qty: 14 0RF atorvastatin 40 mg tablet 40 mg PO DAILY Qty: 20 0RF mecobalamin (vitamin B12) 1,000 mcg tablet,chewable 1,000 mcg PO DAILY Qty: 30 0RF aripiprazole 5 mg tablet 5 mg PO BEDTIME Qty: 30 0RF prazosin 1 mg capsule 1 mg PO BEDTIME Qty: 20 0RF trazodone 100 mg Tablet 100 mg PO BEDTIME Qty: 30 0RF Rx Instructions: Last filled 07/13/24 buspirone 10 mg tablet 10 mg PO BID Qty: 60 0RF Rx Instructions: Last filled 07/13/24 vilazodone 10 mg Tablet 10 mg PO DAILY Qty: 30 0RF Rx Instructions: must administer with a meal/food. zolpidem 5 mg tablet 5 mg PO BEDTIME PRN (Reason: sleep) Qty: 10 0RF aripiprazole 2 mg tablet 2 mg PO DAILY Qty: 14 0RF prazosin 2 mg capsule 2 mg PO BEDTIME Qty: 30 0RF Rx Instructions: take one 1mg capsule + one 2 mg capsule = 3 mg QHS prazosin 1 mg capsule 1 mg PO BEDTIME Qty: 30 0RF Rx Instructions: take one 1mg capsule + one 2 mg capsule = 3 mg QHS Referrals: Katlyn Davila MD [Primary Care Provider] - Print Language: Portuguese
[2024-10-27 18:13] LABS: MANUAL DIFF FLAG NO
[2024-10-27 18:18] LABS: Venous Blood Gas Refer to POC result
[2024-10-27 18:18] LABS: Appearance Urine Clear; Color Urine Yellow; Glucose Urine UA >=1000 mg/dL (Negative); Leukocyte Esterase Urine Negative (Negative); Nitrite Urine Negative (Negative); PH 5.5 (5.0-9.0); Specific Gravity - Urine 1.025 (1.005-1.025); UMIC TRIGGER UACC YES; Urine Blood Negative (Negative); Urine Ketones Trace mg/dL (Negative); Urine Protein Negative (Neg-Trace)
[2024-10-27 18:28] LABS: VBG Base Excess 3.5 mmol/L; VBG HCO3 28 mmol/L (22-26); VBG pCO2 43 mmHg; VBG pH 7.42 (7.32-7.43); VBG pO2 50 mmHg
[2024-10-27 18:28] LABS: Bacteria Urine None Seen (None Seen); Hyaline Casts Urine 0-2 /LPF (0-2); RBC Urine 0-2 /HPF (0-2); Squamous Epithelial Cell Urine 0-2 /HPF (0-2); WBC Urine 0-5 /HPF (0-5)
[2024-10-27 18:29] LABS: Basophils Absolute Auto 0.1 X10*3/uL (0.0-0.2); Basophils Percent Auto 0.5 % (0-2); Eosinophils Absolute Auto 0.2 X10*3/uL (0.0-0.4); Eosinophils Percent Auto 2.1 % (0-4); Hematocrit 45.4 % (42.0-52.0); Hemoglobin 15.9 g/dl (14.0-18.0); Imm Gran Abs Auto 0.03 X10*3/uL (0.00-0.03); Imm Gran Pct Auto 0.3 % (0.0-0.4); Lymphocytes Absolute Auto 3.9 X10*3/uL (1.2-4.9); Lymphocytes Percent Auto 34.4 % (20-40); Mean Corpuscular Hemoglobin 30.1 pg (27.0-33.0); Mean Platelet Volume 12.2 fL (9.4-12.4); Monocytes Absolute Auto 0.7 X10*3/uL (0.1-1.2); Monocytes Percent Auto 5.7 % (2-11); Neutrophils Absolute Auto 6.5 x10*3/uL (2.0-8.3); Platelet Count 202 X10*3/uL (160-400); Red Blood Count 5.28 X10*6/uL (4.60-5.80); Red Cell Distribution Width 12.3 % (11.0-16.0); White Blood Count 11.4 X10*3/uL (4.8-10.8)
[2024-10-27 18:35] LABS: Anion Gap 10 (12-20); Blood Urea Nitrogen 13 mg/dL (9-16); Calcium 9.6 mg/dL (8.4-10.2); Carbon Dioxide 24 mmol/L (22-29); Chloride 106 mmol/L (96-108); Creatinine Clr Calc Pharmacy 149.6; Estimated Glomerular Filt Rate > 60; Glucose Random 333 mg/dL (60-115); Potassium 4.1 mmol/L (3.3-5.1); Sodium 136 mmol/L (135-145)
[2024-10-27 18:36] LABS: Alanine Aminotransferase 39 U/L (0-40); Albumin Level 4.4 g/dL (3.5-5.0); Alkaline Phosphatase 95 U/L (39-117); Aspartate Amino Transferase 23 U/L (5-37); Lipase 33 U/L (8-78); Total Protein 7.4 g/dL (6.5-8.0)
[2024-10-27 18:56] LABS: Beta-Hydroxybutyrate 0.08 mmol/L (0.02-0.27); Bilirubin Total 0.4 mg/dL (0.0-1.0)
--- NOTE | 2024-10-27 19:41 | PC.NURSE ---
Patient presents with c/o elevated glucose with assoc restlessness and fatigued for the past month.
[2024-10-27 19:42] VITALS: BP 105/64; PULSE 91; RESP 18; TEMP 36.7; O2SAT 97
[2024-10-27] MEDS: Insulin Lispro 100 UNIT/ML 3 ML VIAL SUBCUT (20:32)
--- NOTE | 2024-10-27 21:20 | PC.NURSE ---
POC 245, Ayla, ED provider notified.
[2024-10-27 21:22] LABS: Influenza A PCR NEGATIVE (Negative); Influenza B PCR NEGATIVE (Negative); Resp Syncy Virus RNA Qual PCR NEGATIVE (Negative); SARS COV2 PCR INHOUSE NEGATIVE (Negative)
[2024-10-27 21:40] VITALS: BP 123/74; PULSE 92; RESP 16; TEMP 36.8; O2SAT 97
[2024-10-28 04:48] LABS: Glucose, Whole Blood 251 mg/dL (60-115)
[2024-10-28 04:48] LABS: Glucose, Whole Blood 245 mg/dL (60-115)
== END 2024-10-27 21:41 | disposition home or self-care (01) ==
PROVIDERS: Nurse Practitioner Family; Physician Assistant Medical; Emergency Provider Emergency Medicine Emergency Medical Services; PCP Internal Medicine
DX: E11.65 Type 2 diabetes mellitus with hyperglycemia (principal); R35.0 Frequency of micturition; R53.83 Other fatigue; I10 Essential (primary) hypertension; E78.5 Hyperlipidemia, unspecified; F32.9 Major depressive disorder, single episode, unspecified; Z79.4 Long term (current) use of insulin; Z79.899 Other long term (current) drug therapy; Z03.818 Encounter for observation for suspected exposure to other biological agents ruled out
CPT/HCPCS: 0241U; 36415; 80053; 81001; 82010; 82803; 82947; 83690; 83735; 85025; 99283; 99284